=== PATIENT | male | born 1980 | race Caucasian/White ===

== ENCOUNTER 2020-09-04 13:56 | Emergency (ER) | payer MEDICARE, SELFPAY ==
[2020-09-04 14:11] VITALS: BP 116/71; PULSE 85; RESP 18; TEMP 36.8; O2SAT 98
--- NOTE | 2020-09-04 14:51 | ED.URI ---
HPI - URI/Sore Throat General Chief Complaint: Upper Respiratory Infection Stated Complaint: sore throat Time Seen by Provider: 09/04/20 14:11 Source: patient and RN notes reviewed Mode of arrival: ambulatory Limitations: no limitations History of Present Illness HPI Narrative: Patient presents today complaint of a 2-day history of right-sided sore throat. 1 month ago, patient was seen at [facility] and surgery was done to remove a very large right-sided stone from his salivary gland. States he was very ill at the time and was kept in the hospital for several days due to infection and swelling compromising his airway. He has been since discharged from ENTs care. He finished 10 days of Augmentin when he was discharged from the hospital. Since his sore throat has returned, he is having pain in the same location on the right side of his neck. States this in the same location as his surgical site. Associated symptoms include voice change and fatigue. MD elicited complaint: sore throat Related Data Home Medications Medication Instructions Recorded Confirmed alprazolam 1 mg PO TID 09/04/20 09/04/20 citalopram 20 mg PO DAILY 09/04/20 09/04/20 metoprolol succinate 50 mg PO DAILY 09/04/20 09/04/20 oxycodone-acetaminophen 1 tablet PO DIRECTED 09/04/20 09/04/20 zolpidem 10 mg PO DAILY 09/04/20 09/04/20 Allergies Allergy/AdvReac Type Severity Reaction Status Date / Time No Known Allergies Allergy Unknown Unverified 10/09/11 14:35 Review of Systems Review of Systems: Narrative: CONSTITUTIONAL: Denies body aches, fever, chills, or sweats.+ Fatigue EYES: Denies visual changes, redness, or discharge. ENT: Denies rhinorrhea, congestion, or otalgia.+ Sore throat, voice change CARDIOVASCULAR: Denies chest pain, palpitations, or edema. RESPIRATORY: Denies cough or dyspnea. GASTROINTESTINAL: Denies abdominal pain, nausea, vomiting, or diarrhea. GENITOURINARY: Denies dysuria or hematuria. SKIN: Denies rash, itching, or wounds. MUSCULOSKELETAL: Denies back pain, joint pain, or myalgia. NEUROLOGIC: Denies headache, numbness, tingling, or weakness. PSYCH: Denies depression or anxiety. [facility] Past Medical History Medical History (Updated 09/04/20 @ 15:17 by Daily Osuna, [employer], ) Sialolithiasis Comments At time of signature, I have reviewed and agree with nursing past medical, surgical, social and family history unless otherwise noted. Please see nursing chart for further information. There is no relevant family history pertinent to the presenting complaint Exam Narrative: Exam Narrative: GENERAL: Well-appearing, well-nourished, and in no acute distress. HEAD: Normocephalic, atraumatic. EYES: EOMI. No redness or drainage. Conjunctivae normal. ENT: Mucous membranes pink and moist. Nares clear. No rhinorrhea. TMs normal bilaterally. Throat normal without edema or erythema.. Uvula midline. NECK: Normal AROM. Supple. Right anterior cervical chain lymphadenopathy and tenderness. Voice is very slightly hoarse, patient is speaking very quickly and in complete sentences. CHEST: No respiratory distress. Clear to auscultation. HEART: Regular rate and rhythm. No murmur appreciated. Normal peripheral pulses. EXTREMITIES: Normal range of motion. No edema. SKIN: Warm, dry, no rash. Capillary refill normal. Normal skin turgor. NEURO: No focal deficits. Alert and oriented x3. Gait steady. PSYCH: Normal affect. No signs of depression or anxiety. Course Course Emergency Course: To the fact the patient's pain is in the same area of his surgical site and he feels that his voice is affected and his throat feels swollen, I feel it indicated to send him to the ER for further evaluation. He declines at this time and will leave AGAINST MEDICAL ADVICE. He does not seem under the influence of alcohol or drugs and is able to make his own medical decisions. Understands that he will sign AMA paperwork and will be sent home with discharge p
== END 2020-09-04 15:04 | disposition left against medical advice (07) ==
PROVIDERS: Emergency Provider Nurse Practitioner; PCP Family Medicine
DX: J02.9 Acute pharyngitis, unspecified (principal); R59.9 Enlarged lymph nodes, unspecified; F41.9 Anxiety disorder, unspecified
CPT/HCPCS: 87081; 87880; 99213; G0463

== ENCOUNTER 2024-06-22 18:09 | Emergency (ER) | payer MEDICARE, SELFPAY ==
[2024-06-22 18:21] VITALS: BP 111/95; PULSE 91; RESP 18; TEMP 36.4; O2SAT 99
--- NOTE | 2024-06-22 18:32 | ED_ITS ---
HPI - URI/Sore Throat General Chief Complaint: Upper Respiratory Infection Stated Complaint: Headache/Fever Time Seen by Provider: 06/22/24 18:32 Source: patient Mode of arrival: ambulatory Limitations: no limitations History of Present Illness HPI Narrative: 44-year-old male presents with complaint of nasal congestion, fatigue, cough, body aches, fever for 3 days. [facility]febrile [facility]. No chest pain or shortness breath. Taking [id number] Tylenol cold and flu to treat symptoms. Patient states that his son tested positive for COVID. Called his primary care physician and was told to come to Urgent Care for paxlovid. All systems reviewed and negative except as noted above. Related Data Home Medications ?Medication ?Instructions ?Recorded ?Confirmed ?Last Taken ?Type alprazolam 1 mg tablet 1 mg PO TID 09/04/20 09/04/20 Unknown History citalopram 20 mg tablet 20 mg PO DAILY 09/04/20 09/04/20 Unknown History metoprolol succinate 50 mg 50 mg PO DAILY 09/04/20 09/04/20 Unknown History tablet,extended release 24 hr oxycodone-acetaminophen 10 mg-325 1 tablet PO DIRECTED 09/04/20 09/04/20 Unknown History mg tablet zolpidem 10 mg tablet 10 mg PO DAILY 09/04/20 09/04/20 Unknown History Allergies Allergy/AdvReac Type Severity Reaction Status Date / Time No Known Allergies Allergy Unknown Verified 06/22/24 18:35 Review of Systems Review of Systems: CONSTITUTIONAL: reports fever, chills, or sweats. EYES: Denies visual changes, redness, or discharge. ENT: Reports rhinorrhea, congestion, sore throat. Denies otalgia. CARDIOVASCULAR: Denies chest pain, palpitations, or edema. RESPIRATORY: reports cough . Denies dyspnea. GASTROINTESTINAL: Denies abdominal pain, nausea, vomiting, or diarrhea. GENITOURINARY: Denies dysuria or hematuria. SKIN: Denies rash or itching. MUSCULOSKELETAL: Denies back pain, joint pain, or myalgia. NEUROLOGIC: Denies headache, numbness, or weakness. PSYCHIATRIC: Denies anxiety or depression. All other systems reviewed are negative, except as documented in HPI. COUNTS INCLUDE 234 BEDS AT THE [facility] Past Medical History Medical History (Updated 06/22/24 @ 18:41 by Edwige Douglas NP) Sialolithiasis Comments At time of signature, agree with nursing past medical, surgical, social and family history. There is no relevant family history pertinent to the presenting complaint. Exam Narrative: GENERAL: This is a well-nourished, well-developed patient, ill-appearing but no acute distress HEAD: normocephalic, atraumatic. EYES: PERRL. Sclera clear/white. Vision is grossly intact. EARS: External ears normal, auditory canals clear and without drainage, TMs normal without perforation. Hearing grossly intact. NOSE: External nose normal with erythema and swelling to bilateral nares with clear nasal drainage THROAT: Mucous membranes moist, posterior pharynx clear. NECK: Neck supple, non-tender without lymphadenopathy, masses or thyromegaly. CARDIOVASCULAR: Regular rate and rhythm without murmurs, gallops, or rubs. RESPIRATORY: Clear to auscultation. Breath sounds equal bilaterally. No wheezes, rales, or rhonchi. SKIN: warm, Dry, intact with no suspicious lesions or rash, good texture and turgor. NEURO: awake, alert, and oriented to person, place and time. There were no obvious focal neurologic abnormalities. EXTREMITIES: No joint tenderness, effusion, or edema noted. Course Course Level of Care: [facility] Visit Vital Signs Vital signs: Vital Signs Temperature 36.4 C 06/22/24 18:21 Pulse Rate 91 06/22/24 18:21 Respiratory Rate 18 06/22/24 18:21 Blood Pressure 111/95 H 06/22/24 18:21 Pulse Oximetry 99 06/22/24 18:21 Oxygen Delivery Room Air 06/22/24 18:21 Temperature 36.4 C 06/22/24 18:21 Pulse Rate 91 06/22/24 18:21 Respiratory Rate 18 06/22/24 18:21 Blood Pressure 111/95 H 06/22/24 18:21 Pulse Oximetry 99 06/22/24 18:21 Oxygen Delivery Room Air 06/22/24 18:21 reviewed MDM - URI/Sore Throat MDM Narrative Medical decision making narrative: positive COVID. Patient is well-appearing, nontoxic. Lungs clear to auscultat ion. Recommend [id number] medications to treat symptoms. Interactions with paxlovid and patient's alprazolam and oxycodone. Please be advised this is a medical document. It is intended for [id number] communication. It is written in medical language and may contain unfamiliar abbreviations or verbiage. Medical documents are intended to carry relevant information, facts as evident, and the clinical opinion of the practitioner at the time of the encounter. This report may have been done utilizing a voice recognition system. Attempts have been made to correct errors. However, there may be uncorrected grammatical, spelling, and recognition errors present. The file time of this note does not necessarily represent the time of service. Discharge Plan Discharge Clinical Impression: COVID-19 Patient Disposition: Home, Self-Care Condition: Stable Instructions: COVID-19 (Coronavirus Disease 2019) (ED) Additional Instructions: your COVID test was positive today. COVID is a virus and symptoms may last 10-14 days. Take antiviral as prescribed. Taking [id number] medication to treat her symptoms such as DayQuil NyQuil cold and flu. Take ibuprofen every 6-8 hours as needed for pain and fever. Drink at least 64 oz of water a day. Follow-up with your doctor if symptoms are not improving. If you have chest pain or shortness of breath go to the ER. Patient Language: [place] Prescriptions: New molnupiravir 200 mg capsule 800 mg PO Q12H 5 Days Qty: 40 0RF No Action alprazolam 1 mg tablet 1 mg PO TID metoprolol succinate 50 mg tablet extended release 24 hr 50 mg PO DAILY citalopram 20 mg tablet 20 mg PO DAILY oxycodone-acetaminophen 10-325 mg tablet 1 tablet PO DIRECTED zolpidem 10 mg tablet 10 mg PO DAILY amoxicillin-pot clavulanate [Augmentin] 875-125 mg tablet 1 tablet PO Q12H 10 Days Qty: 20 0RF Follow-up/Referrals: Chase Pat MD [Primary Care Provider] - Time of Disposition: 18:41
[2024-06-22 18:47] LABS: EDCOVIDSCREEN Positive (Negative)
== END 2024-06-22 18:55 | disposition home or self-care (01) ==
PROVIDERS: Emergency Provider Nurse Practitioner Family; PCP Internal Medicine
DX: U07.1 COVID-19 (principal)
CPT/HCPCS: 87426; 99213; G0463